=== PATIENT | female | born 1975 | race Caucasian/White ===

== ENCOUNTER 2021-08-25 08:15 | Outpatient (RCR) | payer OTHER, MEDICAID, SELFPAY ==
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
--- NOTE | 2021-07-01 17:00 | PT.OPPOC ---
Physical, Occupational & Speech Therapy At [facility] Current Diagnoses Postural kyphosis, thoracolumbar region (07/01/21) Spondylolisthesis, lumbar region (07/01/21) Visit Care Team Role Provider Type BRYSON Fernandez Family Provider Non-Staff Primary Care Provider Specialty: Nursing Address: [facility], [address] , [place], [address] Email: Neeraj Forrest PA-C Attending Provider Non-Staff Referring Provider Specialty: Medical Address: [address] [place] [address], [place], [address] Email: Plan Of Care PT-OP-T Assessment and Plan Start: 06/23/21 18:04 Freq: Status: Active Protocol: Document 07/01/21 10:34 LRN (Rec: 07/01/21 11:25 LRN [id number]) Physical Therapy Assessment Rehab Potential Rehabilitation Potential Fair Evaluation Complexity Number of Personal Factors/Comorbidities 3 or More Number of Body Systems Impaired 3 Clinical Presentation at Evaluation Evolving Impairments Impairments Activity Tolerance,Gait,Pain, Posture,ROM,Strength Goals Four Impairment Posture Usp Goal (LTG) stand up straight Three Impairment Gait requiring a majority of the time 4WW. Short Term Goal (STG) Improve gait stability. STG Duration 08/05/21 Usp Goal (LTG) Pt will be able to ambulate with improved standing posture LTG Duration 09/12/21 Two Impairment Pain in neck/shoulder, midback & Low back rated 8/10 Short Term Goal (STG) Decrease pain to intermittent in nature. STG Duration 08/05/21 Mail Agent Goal (LTG) Decrease low back pain to no more than 4/10. LTG Duration 09/12/21 One Impairment Lacks self care HEP. Short Term Goal (STG) Pt will be educated in proper standing and sitting posture. STG Duration 08/05/21 Mail Agent Goal (LTG) Pt will be independent in a self care HEP of core/neck stabilization and neck/back AROM ex's. LTG Duration 09/12/21 Assessment Summary Assessment Pt presents with mechanical and soft tissue dysfunction of the cervical and lumbar spine . Stability and healing records of C1 Arch/L Occipital condyle is not available. L4 -L5, grade 8 spondylolisthesis , severe central and moderate bilateral foraminal stenosis, and L5-S1 broad disc osteophyte with severe R >L foraminal stenosis is present. The pt is guarded in the neck and muscles of the back and hips. There is much soft tissue tenderness. The pt will benefit from skilled physical therapy to work towards the above stated goals . Physical Therapy Plan Frequency and Duration Frequency of Treatment 2x/Week Plan of Care Start Date 07/01/21 Plan of Care End Date 09/12/21 Therapeutic Interventions Therapeutic Interventions Aquatic Therapy,Gait Training, Home Exercise Program,Manual Therapy,Neuromuscular Re- education,Patient/Caregiver Education,Self-Care/Home Management,Soft Tissue Mobilization,Taping, Therapeutic Exercises Modalities Cold Pack/Ice Massage,Electric Stimulation,Hot Packs, Ultrasound Next Visit Focus/Plan Next Note Type Treatment Note Next Visit Plan Assess TUG. Posture training in sitting and standing. Neck /core stabilization. STM and use of Ultrasound or premod ( not IFC) E-Stim for pain. Focus on HEP. Plan of Care Dates Plan of Care Start Date 07/01/21 Plan of Care End Date 09/12/21 Electronically Signed by: Alka Edwards, PT 07/01/21 [id number] Please Sign and Return: I have reviewed this Plan of Care and certify that the skilled therapy services above are required to meet the patient?s needs. Physician Signature Date Printed Name and Credentials Clinical Instructor Signature Printed Name and Credentials
--- NOTE | 2021-07-03 09:37 | PT-IP ANOTE ---
Cx'd due to COVID concerns. Pt informed medical records available.
--- NOTE | 2021-07-08 11:05 | PT-OP ANOTE ---
Attempted to notify pt of missed appointment and the date and time of next appointment, but pt's mailbox was full.
--- NOTE | 2021-07-25 08:29 | PT-OP ANOTE ---
Per telephone conversation with lining caser who is her transportation means, she was notified of POC end date and discussed the pt's rehab program timeframe and scheduling if pt needs more visits. Encouraged scheduling more appointments with me or FIELD TRAFFIC INVESTIGATOR (FIELD TRAFFIC INVESTIGATOR 4 visits followed by PT visit). compensation manager states she will call back on 07/28/21 to schedule.
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
--- NOTE | 2021-08-04 11:34 | PT-OP ANOTE ---
Attempted to call pt about missed appointment and hospital cx policy, but unable to reach pt or leave VM.
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
--- NOTE | 2021-08-15 14:09 | PT-OP ANOTE ---
Cancelled appt due to mix up of pt being present and available for PT at her appt time +15 minutes (pt left area to use bathroom and upon return was beyond her appt time and did not recheck in with front office). Attempted to discuss with pt and request she discuss with onsite case manager, but pt mailbox was full. Unable to reach onsite case manager who is the pt's transportation provider and request she discuss matter with pt.
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
== END 2021-10-07 08:52 ==
LOC: PHYS 08:15
PROVIDERS: Family Provider Nurse Practitioner; PCP Nurse Practitioner; Referring Provider Physician Assistant; Visit Provider Physician Assistant
DX: M40.05 Postural kyphosis, thoracolumbar region (principal); M43.16 Spondylolisthesis, lumbar region; M54.2 Cervicalgia; M62.81 Muscle weakness (generalized); R29.3 Abnormal posture
CPT/HCPCS: 97014; 97110; 97140; 97162; 97530; 97535; G0283